=== PATIENT | female | born 1960 | race Caucasian/White ===

== ENCOUNTER → 2019-10-09 | Outpatient (CLI) | payer MEDICARE, OTHER ==
[2019-10-09 11:28] LABS: HEMOGLOBIN 11.8 g/dL (12.5-16.0); MEAN CELL VOLUME 87 fl (78-100); MEAN CORPUSCULAR HEMOGLOBIN 26 pg (27-31); MEAN CORPUSCULAR HGB CONC 30 g/dL (33-37); MEAN PLATELET VOLUME 10.8 fl (7.4-10.4); PLATELET COUNT 195 K/mm3 (130-400); RED CELL DISTRIBUTION WIDTH 14.9 % (11.5-14.5); WHITE BLOOD COUNT 7.3 K/mm3 (4.8-10.8)
[2019-10-09 11:29] LABS: ALBUMIN 3.5 g/dL (3.5-5.0); POTASSIUM 3.6 mmol/L (3.5-5.1)
[2019-10-09 11:30] LABS: CALCIUM 9.9 mg/dL (8.3-10.5)
[2019-10-09 11:31] LABS: TOTAL PROTEIN 6.6 g/dL (6.4-8.3)
[2019-10-09 11:33] LABS: TOTAL BILIRUBIN 0.4 mg/dL (0.2-1.2)
[2019-10-09 12:13] LABS: LYMPHOCYTE 10 % (20-51); MONOCYTE 5 % (3-10); NEUTROPHILS 84 % (42-75)
== END ==
LOC: LAB 10:50
PROVIDERS: Internal Medicine Pulmonary Disease
DX: J44.0 Chronic obstructive pulmonary disease with (acute) lower respiratory infection (principal)

== ENCOUNTER → 2021-04-26 | Outpatient (CLI) | payer MEDICARE, OTHER | LOC: LAB 09:51 | DX: J44.9 Chronic obstructive pulmonary disease, unspecified (principal) ==